=== PATIENT | female | born 2000 | race Caucasian/White ===

== ENCOUNTER → 2018-02-15 | Day surgery (SDC) | payer OTHER ==
[~2018-02-15] VITALS: Ht 162.6 cm; Wt 57.2 kg
[~2018-02-15] MED LIST: PROAIR HFA8.5 GM INH
--- NOTE | 2018-02-15 12:37 | Operative Report ---
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 She had undergone surgical arthroscopy of the right ankle a year ago. She still complaining of pain and new MRI revealed a stable osteochondral lesion of the lateral talar dome. She is indicated for surgical drilling of the osteochondral lesion. A skeletal hand is necessary and provided by physician medication assistant Enio Mccarthy weighted with limb positioning camera positioning throughout the case. Operative/Procedure Note Note: Once informed consent was obtained and the correct limb was identified and the patient brought to the operating room placed on table in supine position. After administration of general endotracheal anesthesia the patient's right leg was placed in well leg tyson in the right lower sinus prepped and draped in usual sterile fashion. Again the procedure the right ankle was placed in the noninvasive ankle distractor from [employer]. Once this was done a lateral portal was established with care to avoid the superficial peroneal nerve. The our scope was introduced into the ankle joint. Diagnostic arthroscopy was carried out. There are no loose bodies in the ankle. The lateral gutter was clean. There is no significant impingement lesions of the lateral ligamentous complex. Posterior ligaments are visualized and intact. The medial gutter was cleaned of any debris. The distal tibial plafond service was devoid of any cartilaginous defects. There were no large cartilaginous full-thickness defects of the talar dome. A medial portal was made under direct visualization a probe was introduced. The area of concern of the lateral talar dome was probed and found to be soft on terms of its cartilaginous surface. Using a ring curette the lesion was curetted down to subchondral cancellus bone once this was done the micro fracture awls were placed into the joint after we had switched the camera to the medial portal and the awls were placed through the lateral portal. Microfracture technique was done with the awls and a mallet. Excellent bleeding was obtained from the bony surface. Once this was done the instruments removed and the ankle was irrigated. The portals were closed with 3-0 nylon interrupted sutures and the patient was placed in a sterile dressing. Patient was awakened taken recovery in stable condition.
== END ==
LOC: STS 03:23
DX: M92.61 Juvenile osteochondrosis of tarsus, right ankle (principal); M92.8 Other specified juvenile osteochondrosis; M25.471 Effusion, right ankle; M25.571 Pain in right ankle and joints of right foot
CPT/HCPCS: 81025; J0690; J1100; J2250; J2405